=== PATIENT | female | born 1995 | race African-American/Black ===

== ENCOUNTER 2017-07-03 20:56 | Emergency (ER) | payer SELFPAY ==
[~2017-07-03] VITALS: Ht 152.4 cm; Wt 49.9 kg
[2017-07-03 21:00] VITALS: BP 138/69
[2017-07-03] MEDS ORDERED: DIPHTH,PERTUSS(ACELL),TET TOX 0.5 ML DISP.SYRIN. VAX IM ONE (21:30)
[2017-07-03] MEDS ORDERED: SULF1TAB24 PO (21:33)
--- NOTE | 2017-07-03 21:33 | PHYS DOC ---
Past Medical History Past Medical History: No Pertinent History Past Surgical History: No Surgical History Alcohol Use: None Drug Use: None Adult General Chief Complaint Chief Complaint: TOE PROBLEM HPI HPI Patient is a 21 year old female who presents with infection to the right great toe. Patient states for the last 2 or 3 days she has noted yellow/greenish drainage from the right great toe. Patient denies any fever. Review of Systems Review of Systems Constitutional: Denies fever or chills [] Musculoskeletal: Denies back pain or joint pain [] Integument: infection to the right great toe Neurologic: Denies headache, focal weakness or sensory changes [] Current Medications Current Medications Current Medications Medications (Trade) Dose Ordered Sig/Keila Start Time Stop Time Status Last Admin Dose Admin Diphtheria/ Tetanus/Acell Pertussis (Boostrix) 0.5 ml ONCE ONCE 07/03/17 21:30 07/03/17 21:31 Allergies Allergies Allergies Coded Allergies Type Severity Reaction Last Updated Verified No Known Drug Allergies 07/03/17 No Physical Exam Physical Exam Constitutional: Well developed, well nourished, no acute distress, non-toxic appearance. [] Skin: Warm, dry, right great toe medial aspect with small amount of soft tissue swelling and erythema consistent with ingrown toenail. There is no drainage in the ED. The area is warm tender to touch. +2 right pedal pulse. Back: No tenderness, no CVA tenderness. [] Extremities: No tenderness, no cyanosis, no clubbing, ROM intact, no edema. [] Neurologic: Alert and oriented X 3, normal motor function, normal sensory function, no focal deficits noted. [] Psychologic: Affect normal, judgement normal, mood normal. [] Current Patient Data Vital Signs Vital Signs Date Time Temp Pulse Resp B/P (MAP) Pulse Ox O2 Delivery O2 Flow Rate FiO2 07/03/17 21:00 97.9 79 20 98 Room Air 97.9 EKG EKG [] Radiology/Procedures Radiology/Procedures [] Course & Med Decision Making Course & Med Decision Making Pertinent Labs and Imaging studies reviewed. (See chart for details) Patient has ingrown right great toenail. Recommended soaking in Epsom salts and warm water twice a day. Discharged with Bactrim. Instructed to avoid cutting her toenails very short. Given tetanus in the ED. Provided return precautions and discharged in stable condition. Dragon Disclaimer Dragon Disclaimer This electronic medical record was generated, in whole or in part, using a voice recognition dictation system. Departure Departure Impression: Primary Impression: Ingrowing toenail with infection Disposition: 01 HOME, SELF-CARE Condition: STABLE Referrals: KARUNA GARCIA MD (PCP) follow up in one week Patient Instructions: Infected Ingrown Toenail Additional Instructions: You were seen with ingrown toenail to the right great toe. Keep the area clean and dry. Avoid cutting your toenails very short, soak the right foot in Epsom salts salted warm water twice a day. Complete the oral antibiotics prescribed. Follow-up with your doctor in 1-2 weeks. Scripts Sulfamethoxazole/Trimethoprim (BACTRIM DS TABLET) 1 Each Tablet 1 TAB PO BID, #20 TAB Prov: DELANO BLACKMAN APRN 07/03/17 DELANO BLACKMAN APRN Jul 03, 2017 21:33
== END 2017-07-03 21:40 | disposition home or self-care (01) ==
LOC: ER 20:56
DX: L60.0 Ingrowing nail (principal); L03.031 Cellulitis of right toe
CPT/HCPCS: 90471; 90715; 99283-25

== ENCOUNTER 2017-08-10 08:26 | Emergency (ER) | payer SELFPAY ==
[~2017-08-10] VITALS: Ht 152.4 cm; Wt 54.4 kg
[~2017-08-10 08:26] MED LIST: SULF1TAB24 PO
--- NOTE | 2017-08-10 09:10 | PHYS DOC ---
Past Medical History Past Medical History: No Pertinent History Past Surgical History: No Surgical History Alcohol Use: None Drug Use: None Adult General Chief Complaint Chief Complaint: ABDOMINAL PAIN IN HPI HPI Patient is a 22 year old female with no significant medical history 2 para 1 currently approximately 6 weeks who presents today with pelvic pain for 3 days. Patient states she was seen at [facility] 3 days ago but they did not do anything about her pelvic pain. She states neither did they do any ultrasound to figure out how far along she is. Patient states she believes she is further along than the 6 weeks she was told. She states her last menstrual cycle was in the middle of June. Patient denies any vaginal bleeding, denies any nausea vomiting. Review of Systems Review of Systems Constitutional: Denies fever or chills [] Eyes: Denies change in visual acuity, redness, or eye pain [] HENT: Denies nasal congestion or sore throat [] Respiratory: Denies cough or shortness of breath [] Cardiovascular: No additional information not addressed in HPI [] GI: Reports pelvic pain in , denies nausea, vomiting, bloody stools or diarrhea [] : Denies dysuria or hematuria [] Musculoskeletal: Denies back pain or joint pain [] Integument: Denies rash or skin lesions [] Neurologic: Denies headache, focal weakness or sensory changes [] All other systems were reviewed and found to be within normal limits, except as documented in this note. Allergies Allergies Allergies Coded Allergies Type Severity Reaction Last Updated Verified No Known Drug Allergies 07/03/17 No Physical Exam Physical Exam Constitutional: Well developed, well nourished, no acute distress, non-toxic appearance. [] HENT: Normocephalic, atraumatic, bilateral external ears normal, oropharynx moist, no oral exudates, nose normal. [] Eyes: PERRLA, EOMI, conjunctiva normal, no discharge. [] Neck: Normal range of motion, no tenderness, supple, no stridor. [] Cardiovascular:Heart rate regular rhythm, no murmur [] Lungs & Thorax: Bilateral breath sounds clear to auscultation [] Abdomen: Bowel sounds normal, soft, no tenderness, no masses, no pulsatile masses. [] Pelvic exam External pelvic appears normal, cervix is closed, no CMT, no adnexal tenderness , trace amount of discharge in the vaginal vault. Skin: Warm, dry, no erythema, no rash. [] Back: No tenderness, no CVA tenderness. [] Extremities: No tenderness, no cyanosis, no clubbing, ROM intact, no edema. [] Neurologic: Alert and oriented X 3, normal motor function, normal sensory function, no focal deficits noted. [] Psychologic: Affect normal, judgement normal, mood normal. [] Current Patient Data Vital Signs Vital Signs Date Time Temp Pulse Resp B/P (MAP) Pulse Ox O2 Delivery O2 Flow Rate FiO2 08/10/17 09:04 98.4 90 16 138/69 (92) 99 Room Air 98.4 Lab Values Laboratory Tests Test 08/10/17 09:00 08/10/17 10:35 Urine Collection Type Unknown Urine Color Yellow Urine Clarity Clear Urine pH 6.0 Urine Specific [place] >=1.030 Urine Protein Negative mg/dL (NEG-TRACE) Urine Glucose (UA) Negative mg/dL (NEG) Urine Ketones (Stick) Negative mg/dL (NEG) Urine Blood Negative (NEG) Urine Nitrite Negative (NEG) Urine Bilirubin Negative (NEG) Urine Urobilinogen Dipstick 0.2 mg/dL (0.2 mg/dL) Urine Leukocyte Esterase Negative (NEG) Urine RBC 0 /HPF (0-2) Urine WBC 0 /HPF (0-4) Urine Squamous Epithelial Cells Few /LPF Urine Bacteria 0 /HPF (0-FEW) White Blood Count 8.3 x10^3/uL (4.0-11.0) Red Blood Count 4.85 x10^6/uL (3.50-5.40) Hemoglobin 13.5 g/dL (12.0-15.5) Hematocrit 41.4 % (36.0-47.0) Mean Corpuscular Volume 85 fL (79-100) Mean Corpuscular Hemoglobin 28 pg (25-35) Mean Corpuscular Hemoglobin Concent 33 g/dL (31-37) Red Cell Distribution Width 12.9 % (11.5-14.5) Platelet Count 276 x10^3/uL (140-400) Neutrophils (%) (Auto) 70 % (31-73) Lymphocytes (%) (Auto) 20 % (24-48) L Monocytes (%) (Auto) 7 % (0-9) Eosinophils (%) (Auto) 2 % (0-3) Basophils (%) (Auto) 1 % (0-3) Neutrophils # (Auto) 5.8 x10^3uL (1.8-7.7) Lymphocytes # (Auto) 1.7 x10^3/uL (1.0-4.8) Monocytes # (Auto) 0.6 x10^3/uL (0.0-1.1) Eosinophils # (Auto) 0.2 x10^3/uL (0.0-0.7) Basophils # (Auto) 0.0 x10^3/uL (0.0-0.2) Maternal Serum HCG Beta Subunit 60567 mIU/mL (0-5) H Sodium Level 136 mmol/L (136-145) Potassium Level 3.6 mmol/L (3.5-5.1) Chloride Level 103 mmol/L (98-107) Carbon Dioxide Level 24 mmol/L (21-32) Anion Gap 9 (6-14) Blood Urea Nitrogen 11 mg/dL (7-20) Creatinine 0.7 mg/dL (0.6-1.0) Estimated GFR (Cockcroft-Gault) 129.1 BUN/Creatinine Ratio 16 (6-20) Glucose Level 105 mg/dL (70-99) H Calcium Level 9.2 mg/dL (8.5-10.1) Total Bilirubin 0.3 mg/dL (0.2-1.0) Aspartate Amino Transferase (AST) 13 U/L (15-37) L Alanine Aminotransferase (ALT) 15 U/L (14-59) Alkaline Phosphatase 55 U/L (46-116) Total Protein 8.1 g/dL (6.4-8.2) Albumin 3.9 g/dL (3.4-5.0) Albumin/Globulin Ratio 0.9 (1.0-1.7) L Lipase 125 U/L (73-393) Laboratory Tests 08/10/17 10:35 Laboratory Tests 08/10/17 10:35 Microbiology 08/10/17 Wet Prep - Final, Complete Laboratory Tests Test 08/10/17 09:00 08/10/17 10:35 Urine Collection Type Unknown Urine Color Yellow Urine Clarity Clear Urine pH 6.0 Urine Specific [place] >=1.030 Urine Protein Negative mg/dL (NEG-TRACE) Urine Glucose (UA) Negative mg/dL (NEG) Urine Ketones (Stick) Negative mg/dL (NEG) Urine Blood Negative (NEG) Urine Nitrite Negative (NEG) Urine Bilirubin Negative (NEG) Urine Urobilinogen Dipstick 0.2 mg/dL (0.2 mg/dL) Urine Leukocyte Esterase Negative (NEG) Urine RBC 0 /HPF (0-2) Urine WBC 0 /HPF (0-4) Urine Squamous Epithelial Cells Few /LPF Urine Bacteria 0 /HPF (0-FEW) White Blood Count 8.3 x10^3/uL (4.0-11.0) Red Blood Count 4.85 x10^6/uL (3.50-5.40) Hemoglobin 13.5 g/dL (12.0-15.5) Hematocrit 41.4 % (36.0-47.0) Mean Corpuscular Volume 85 fL (79-100) Mean Corpuscular Hemoglobin 28 pg (25-35) Mean Corpuscular Hemoglobin Concent 33 g/dL (31-37) Red Cell Distribution Width 12.9 % (11.5-14.5) Platelet Count 276 x10^3/uL (140-400) Neutrophils (%) (Auto) 70 % (31-73) Lymphocytes (%) (Auto) 20 % (24-48) L Monocytes (%) (Auto) 7 % (0-9) Eosinophils (%) (Auto) 2 % (0-3) Basophils (%) (Auto) 1 % (0-3) Neutrophils # (Auto) 5.8 x10^3uL (1.8-7.7) Lymphocytes # (Auto) 1.7 x10^3/uL (1.0-4.8) Monocytes # (Auto) 0.6 x10^3/uL (0.0-1.1) Eosinophils # (Auto) 0.2 x10^3/uL (0.0-0.7) Basophils # (Auto) 0.0 x10^3/uL (0.0-0.2) Maternal Serum HCG Beta Subunit 03126 mIU/mL (0-5) H Sodium Level 136 mmol/L (136-145) Potassium Level 3.6 mmol/L (3.5-5.1) Chloride Level 103 mmol/L (98-107) Carbon Dioxide Level 24 mmol/L (21-32) Anion Gap 9 (6-14) Blood Urea Nitrogen 11 mg/dL (7-20) Creatinine 0.7 mg/dL (0.6-1.0) Estimated GFR (Cockcroft-Gault) 129.1 BUN/Creatinine Ratio 16 (6-20) Glucose Level 105 mg/dL (70-99) H Calcium Level 9.2 mg/dL (8.5-10.1) Total Bilirubin 0.3 mg/dL (0.2-1.0) Aspartate Amino Transferase (AST) 13 U/L (15-37) L Alanine Aminotransferase (ALT) 15 U/L (14-59) Alkaline Phosphatase 55 U/L (46-116) Total Protein 8.1 g/dL (6.4-8.2) Albumin 3.9 g/dL (3.4-5.0) Albumin/Globulin Ratio 0.9 (1.0-1.7) L Lipase 125 U/L (73-393) Laboratory Tests 08/10/17 10:35 Laboratory Tests 08/10/17 10:35 Microbiology 08/10/17 Wet Prep - Final, Complete EKG EKG [] Radiology/Procedures Radiology/Procedures []PROCEDURE: OB <14 WKS W/TV Early OB ultrasound History: pelvic pain, , LMP 06/25/2017 Comparison: OB ultrasound dated 11/03/2015 Technique: Realtime grayscale and color Doppler transabdominal and transvaginal examination of the pelvis was performed transvaginally. 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 A single intrauterine is detected, although no heart rate was identified. A gestational sac is identified and measures 1.6 cm corresponding to an age of 6 weeks and 3 days. The yolk sac is seen. [place]-rump length measures 0.5 cm corresponding to an age of 6 weeks and 2 days. EDC by ultrasound is 04/02/2018. Normal bilateral ovaries with normal vascular flow. The right ovary measures 3.7 x 2.6 x 2.2 cm. The left ovary measures 3.2 x 1.8 x 1.4 cm. Impression: 1. A single intrauterine is detected with gestational sac size corresponding to an age of 6 weeks and 3 days and pole length corresponding to an age of 6 weeks and 2 days. EDC by ultrasound is 04/02/2018. EDC by LMP is 04/01/2018. 2. No heart rate is identified, although this may be due to early gestational age. Recommend follow-up with serial lab values and follow-up sonography. DICTATED and SIGNED BY: ABA OROZCO MD DATE: 08/10/17 1010 CC: DELANO BLACKMAN APRN; KARUNA GARCIA MD ~ Course & Med Decision Making Course & Med Decision Making Pertinent Labs and Imaging studies reviewed. (See chart for details) Patient is in the ED with pelvic pain for three days. She is currently approx. 6 weeks. Beta hCG 20,245, CBC CMP with no acute findings, wet prep with no acute findings. First trimester OB ultrasound is noted for single IUP 6 weeks 3 days. No heart rate is identified although this may be due to early gestational age. Recommended follow-up with serum lab findings and follow- up with sonography. Patient was given results. She states she has an appointment with [facility] on August 30. She is provided return precautions and discharged in stable condition. Dragon Disclaimer Dragon Disclaimer This electronic medical record was generated, in whole or in part, using a voice recognition dictation system. Departure Departure Impression: Primary Impression: Abdominal pain affecting Disposition: 01 HOME, SELF-CARE Condition: STABLE Referrals: KARUNA GARCIA MD (PCP) follow up with your OBGYN as scheduled on 08/30/2017 Patient Instructions: Abdominal Pain During Additional Instructions: You were seen for abdominal pain in . Your ultrasound shows you are 6 weeks . Follow up with your [facility] on August 30, 2017 as scheduled. Take vitamins every day. Return to the ED if you have concerning symptoms. DELANO BLACKMAN APRN Aug 10, 2017 09:10
[2017-08-10 09:27] LABS: BILIRUBIN,URINE NEGATIVE (NEG); GLUCOSE,URINE NEGATIVE (NEG); NITRITE,URINE NEGATIVE (NEG); PROTEIN,URINE NEGATIVE (NEG-TRACE); UROBILINOGEN,URINE 0.2 mg/dL (0.2 mg/dL)
[2017-08-10 09:49] LABS: BACTERIA,URINE 0 /HPF (0-FEW); RBC,URINE 0 /HPF (0-2); SQUAMOUS EPITHELIAL CELL,UR FEW /LPF; WBC,URINE 0 /HPF (0-4)
--- NOTE | 2017-08-10 10:23 | RAD ---
Early OB ultrasound History: pelvic pain, , LMP 06/25/2017 Comparison: OB ultrasound dated 11/03/2015 Technique: Realtime grayscale and color Doppler transabdominal and transvaginal examination of the pelvis was performed transvaginally. 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 A single intrauterine is detected, although no heart rate was identified. A gestational sac is identified and measures 1.6 cm corresponding to an age of 6 weeks and 3 days. The yolk sac is seen. [place]-rump length measures 0.5 cm corresponding to an age of 6 weeks and 2 days. EDC by ultrasound is 04/02/2018. Normal bilateral ovaries with normal vascular flow. The right ovary measures 3.7 x 2.6 x 2.2 cm. The left ovary measures 3.2 x 1.8 x 1.4 cm. Impression: 1. A single intrauterine is detected with gestational sac size corresponding to an age of 6 weeks and 3 days and pole length corresponding to an age of 6 weeks and 2 days. EDC by ultrasound is 04/02/2018. EDC by LMP is 04/01/2018. 2. No heart rate is identified, although this may be due to early gestational age. Recommend follow-up with serial lab values and follow-up sonography.
[2017-08-10 10:51] LABS: BASO % 1 % (0-3); EOS % 2 % (0-3); HEMATOCRIT 41.4 % (36.0-47.0); HEMOGLOBIN 13.5 g/dL (12.0-15.5); LYMPH # 1.7 x10^3/uL (1.0-4.8); LYMPH % 20 % (24-48); MEAN CORPUSCULAR HEMOGLOBIN 28 pg (25-35); MEAN CORPUSCULAR HGB CONC 33 g/dL (31-37); MEAN CORPUSCULAR VOLUME 85 fL (79-100); MONO % 7 % (0-9); NEUT % 70 % (31-73); PLATELET COUNT 276 x10^3/uL (140-400); RED BLOOD COUNT 4.85 x10^6/uL (3.50-5.40); RED CELL DISTRIBUTION WIDTH 12.9 % (11.5-14.5); WHITE BLOOD COUNT 8.3 x10^3/uL (4.0-11.0)
[2017-08-10 10:56] LABS: CALCIUM 9.2 mg/dL (8.5-10.1); CREATININE 0.7 mg/dL (0.6-1.0); GFR 129.1; POTASSIUM 3.6 mmol/L (3.5-5.1)
[2017-08-10 11:01] LABS: ALBUMIN 3.9 g/dL (3.4-5.0); ALBUMIN/GLOBULIN RATIO 0.9 (1.0-1.7); TOTAL BILIRUBIN 0.3 mg/dL (0.2-1.0); TOTAL PROTEIN 8.1 g/dL (6.4-8.2)
[2017-08-10 12:14] VITALS: BP 121/63
== END 2017-08-10 12:21 | disposition home or self-care (01) ==
LOC: ER 08:26
DX: O26.891 Other specified pregnancy related conditions, first trimester (principal); R10.2 Pelvic and perineal pain; Z3A.01 Less than 8 weeks gestation of pregnancy
CPT/HCPCS: 36415; 76801; 76817; 80053; 81001; 83690; 84702; 85025; 87491; 87591; 99285; Q0111

== ENCOUNTER 2018-10-31 23:20 | Emergency (ER) | payer SELFPAY ==
[~2018-10-31] VITALS: Ht 152.4 cm; Wt 68.0 kg
[2018-10-31 23:38] VITALS: BP 158/81
[2018-11-01 01:24] LABS: BILIRUBIN,URINE NEGATIVE (NEG); CLARITY,URINE CLEAR; COLOR,URINE YELLOW; NITRITE,URINE NEGATIVE (NEG); PROTEIN,URINE NEGATIVE (NEG-TRACE); UROBILINOGEN,URINE 0.2 mg/dL (0.2 mg/dL)
[2018-11-01 01:31] LABS: BACTERIA,URINE MODERATE /HPF (0-FEW); RBC,URINE 0 /HPF (0-2); SQUAMOUS EPITHELIAL CELL,UR MOD /LPF
[2018-11-01] MEDS ORDERED: ONDA4TAB12 PO (01:39)
[2018-11-01] MEDS ORDERED: PNV1TABL25 PO (01:39)
--- NOTE | 2018-11-01 01:39 | PHYS DOC ---
Past Medical History Past Medical History: No Pertinent History Past Surgical History: No Surgical History Additional Information: Nonsmoker Alcohol Use: None Drug Use: None Adult General Chief Complaint Chief Complaint: MULTIPLE COMPLAINTS HPI HPI 23 y/o female presents with report of 2 week history of intermittent generalized lower abdominal cramping with some associated dizziness and nausea. Reports took a home test today which was positive. Denies fever/chills. Denies vaginal bleeding or discharge. Denies trauma. Review of Systems Review of Systems Constitutional: Denies fever or chills [] Eyes: Denies change in visual acuity, redness, or eye pain [] HENT: Denies nasal congestion or sore throat [] Respiratory: Denies cough or shortness of breath [] Cardiovascular: Denies chest pain or palpitations GI: Reports generalized cramping abdominal pain and nausea; denies vomiting or diarrhea [] /COMPLIANCE REPRESENTATIVE DEALER: Denies dysuria or hematuria; reports positive home test. Denies vaginal bleeding or discharge Musculoskeletal: Denies back pain or joint pain [] Integument: Denies rash or skin lesions [] Neurologic: Denies headache, focal weakness or sensory changes; reports dizziness Complete systems were reviewed and found to be within normal limits, except as documented in this note. Allergies Allergies Allergies Coded Allergies Type Severity Reaction Last Updated Verified No Known Drug Allergies 07/03/17 No Physical Exam Physical Exam Constitutional: Well developed, well nourished, no acute distress, non-toxic appearance HENT: Normocephalic, atraumatic, oropharynx moist Eyes: PERRL, EOMI, conjunctiva normal, no discharge Neck: Normal range of motion, no tenderness, supple Cardiovascular:Heart rate normal with regular rhythm Lungs & Thorax: Bilateral breath sounds clear to auscultation Abdomen: Soft, no tenderness Skin: Warm, dry, no erythema, no rash. Extremities: No tenderness, ROM intact Neurologic: Alert and oriented X 3, normal motor function, normal sensory function, no focal deficits noted Psychologic: Affect normal, judgement normal, mood normal Current Patient Data Vital Signs Lab Values Laboratory Tests Test 10/31/18 23:20 10/31/18 23:48 Urine Collection Type Unknown Urine Color Yellow Urine Clarity Clear Urine pH 6.0 Urine Specific [place] >=1.030 Urine Protein Negative mg/dL (NEG-TRACE) Urine Glucose (UA) Negative mg/dL (NEG) Urine Ketones (Stick) Negative mg/dL (NEG) Urine Blood Negative (NEG) Urine Nitrite Negative (NEG) Urine Bilirubin Negative (NEG) Urine Urobilinogen Dipstick 0.2 mg/dL (0.2 mg/dL) Urine Leukocyte Esterase Negative (NEG) Urine RBC 0 /HPF (0-2) Urine WBC 1-4 /HPF (0-4) Urine Squamous Epithelial Cells Mod /LPF Urine Bacteria Moderate /HPF (0-FEW) Urine Mucus Marked /LPF POC Urine HCG, Qualitative Hcg positive (Negative) Microbiology 11/01/18 Urine Culture - Final, Complete 11/01/18 Urine Culture Result 1 (STEFANIE) - Final, Complete EKG EKG [] Radiology/Procedures Radiology/Procedures [] Course & Med Decision Making Course & Med Decision Making Pertinent Lab studies reviewed. (See chart for details) Patient presents with report of positive home test. Patient with other vague complaints x 2 weeks. Patient neurologically intact. Abdomen nontender and non-peritoneal. UA does not appear to be infected however some contamination noted. Denies dysuria. Upreg positive. Patient denies vaginal bleeding or discharge. Patient stable for discharge home with outpatient follow-up with PCP/OB. Discussed findings and plan with patient, who acknowledges understanding and agreement. Dragon Disclaimer Dragon Disclaimer This electronic medical record was generated, in whole or in part, using a voice recognition dictation system. Departure Departure Impression: Primary Impression: Disposition: 01 HOME, SELF-CARE Condition: STABLE Referrals: KARUNA GARCIA MD (PCP) Patient Instructions: ABCs of Scripts Pnv Cmb#95/Ferrous Fumarate/Fa ( TABLET) 1 Each Tablet 1 TAB PO DAILY, #30 TAB 0 Refills Prov: RUDY FONSECA DO 11/01/18 Ondansetron (ONDANSETRON ODT) 4 Mg Tab.rapdis 1 TAB PO PRN Q6-8HRS for VOMITING, #16 TAB Prov: RUDY FONSECA DO 11/01/18 Problem Qualifiers Primary Impression: Weeks of gestation: unspecified Qualified Codes: Z34.90 - Encounter for supervision of normal , unspecified, unspecified trimester RUDY FONSECA DO Nov 01, 2018 01:39
== END 2018-11-01 01:52 | disposition home or self-care (01) ==
LOC: ER 23:20
DX: O99.89 Other specified diseases and conditions complicating pregnancy, childbirth and the puerperium (principal); R10.9 Unspecified abdominal pain; R42 Dizziness and giddiness; Z3A.01 Less than 8 weeks gestation of pregnancy
CPT/HCPCS: 81001; 81025; 87086; 99283; 99284

== ENCOUNTER 2019-02-07 12:06 | Emergency (ER) | payer SELFPAY ==
[~2019-02-07] VITALS: Ht 152.4 cm; Wt 68.0 kg
[~2019-02-07 12:06] MED LIST changes: +ONDA4TAB12 PO; +PNV1TABL25 PO
[2019-02-07 13:30] LABS: BILIRUBIN,URINE NEGATIVE (NEG); CLARITY,URINE CLEAR; COLOR,URINE AMBER; NITRITE,URINE NEGATIVE (NEG); PROTEIN,URINE 30 mg/dL (NEG-TRACE)
--- NOTE | 2019-02-07 13:32 | PHYS DOC ---
Past Medical History Past Medical History: No Pertinent History Past Surgical History: No Surgical History Alcohol Use: None Drug Use: None Adult General Chief Complaint Chief Complaint: ABDOMINAL PAIN HPI HPI Patient is a pleasant 23-year-old female who presents to the emergency room for evaluation. She states she had a normal menstrual cycle earlier this month, at around the first or third of the month. She states it lasted 5 days. She states she had some pelvic cramping over the past 3-4 days, and began having some vaginal spotting today. She has not had any significant abdominal pain, other than some intermittent cramping. She has not had any dysuria, nausea, or vomiting. She has not had any dizziness or lightheadedness. She states she had a miscarriage 4 months ago and has not had regular menstrual cycles since then. She states that she did go to a few weeks ago and had an STD check and came back clean, and denies concern for recurrent STD, and does not want a pelvic examination performed today. She expresses understanding that STDs could not be evaluated or ruled out without doing this procedure. She does deny having any vaginal discharge. There are no alleviating or exacerbating factors to her symptoms. Review of Systems Review of Systems Constitutional: Denies fever or chills [] GI: Denies abdominal pain, nausea, vomiting, bloody stools or diarrhea [] : Denies dysuria or hematuria [] Musculoskeletal: Denies back pain or joint pain [] Integument: Denies rash or skin lesions [] Neurologic: Denies tinnitus or lightheadedness[] Endocrine: Denies polyuria or polydipsia [] Allergies Allergies Allergies Coded Allergies Type Severity Reaction Last Updated Verified No Known Drug Allergies 07/03/17 No Physical Exam Physical Exam PHYSICAL EXAM: CONSTITUTIONAL: Well developed, well nourished HEAD: normocephalic, atraumatic EENT: PERRL, EOMI. Conjunctivae normal color, sclerae non-icteric; moist mucous membranes. NECK: Supple, non-tender; no meningismus. LUNGS: Lungs CTA, breathing even and unlabored. Normal air movement. HEART: Regular rate and rhythm, no murmur CHEST: No deformity; non-tender ABDOMEN: The abdomen is soft, and non-tender, no masses or bruits. EXTREM: Normal ROM; no deformity, no calf tenderness. Normal pulses palpable in all extremities. There is no pedal edema. SKIN: No rash; no diaphoresis NEURO: Alert; normal speech and cognition; CN's grossly intact; strength grossly intact without focal deficit. BACK: No CVA TTP. Current Patient Data Vital Signs Vital Signs Date Time Temp Pulse Resp B/P (MAP) Pulse Ox O2 Delivery O2 Flow Rate FiO2 02/07/19 12:26 98.4 95 20 134/89 (104) 99 Room Air 98.4 Lab Values Laboratory Tests Test 02/07/19 12:45 POC Urine HCG, Qualitative Hcg negative (Negative) EKG EKG [] Radiology/Procedures Radiology/Procedures [] Course & Med Decision Making Course & Med Decision Making The patient declined further testing at this time. Her main concern was to make sure she was not again. I did discuss the inability to rule out STDs without formal pelvic examination but the patient does not want this at this time. She does have an FIBERGLASS FINISHER whom she sees regularly, and will follow up with. I discussed return precautions in detail with the patient. Dragon Disclaimer Dragon Disclaimer This electronic medical record was generated, in whole or in part, using a voice recognition dictation system. Departure Departure Impression: Primary Impression: Vaginal bleeding Disposition: HOME, SELF-CARE Condition: STABLE Referrals: UNKNOWN PCP NAME (PCP) Additional Instructions: Follow-up with your FIBERGLASS FINISHER for further evaluation. Return to medical care for any new or worsening symptoms. ARNULFO MALDONADO MD February 07, 2019 13:32
[2019-02-07 13:44] VITALS: BP 119/60
[2019-02-07 13:55] LABS: BACTERIA,URINE 0 /HPF (0-FEW); RBC,URINE >40 /HPF (0-2); WBC,URINE OCC /HPF (0-4)
== END 2019-02-07 13:49 | disposition home or self-care (01) ==
LOC: ER 12:06
DX: N93.8 Other specified abnormal uterine and vaginal bleeding (principal); R10.2 Pelvic and perineal pain
CPT/HCPCS: 81001; 81025; 87086; 99283; 99284